=== PATIENT | female | born 1985 | race Caucasian/White ===

== ENCOUNTER 2019-11-29 20:54 | Emergency (ER) | payer MEDICAID ==
[~2019-11-29] VITALS: Ht 165.1 cm; Wt 54.5 kg
[2019-11-29 21:08] VITALS: BP 146/82
== END 2019-11-29 22:53 | disposition home or self-care (01) ==
LOC: ER 20:55
DX: S93.402A Sprain of unspecified ligament of left ankle, initial encounter (principal); Z88.5 Allergy status to narcotic agent; Z88.8 Allergy status to other drugs, medicaments and biological substances; W19.XXXA Unspecified fall, initial encounter; Y93.89 Activity, other specified; Y92.89 Other specified places as the place of occurrence of the external cause; Y99.8 Other external cause status
CPT/HCPCS: 29515; 73610; 99284